=== PATIENT | female | born 1955 | race Asian ===

== ENCOUNTER 2022-09-26 10:40 | Emergency (ER) | payer MEDICARE, OTHER ==
[~2022-09-26] VITALS: Ht 160 cm; Wt 69.1 kg
[2022-09-26 15:06] VITALS: BP 128/83
== END 2022-09-26 15:07 | disposition home or self-care (01) ==
LOC: EMS 10:49
DX: M54.2 Cervicalgia (principal); R51.9 Headache, unspecified; I10 Essential (primary) hypertension; V98.8XXA Other specified transport accidents, initial encounter; Y93.89 Activity, other specified; Y92.89 Other specified places as the place of occurrence of the external cause; Y99.8 Other external cause status
CPT/HCPCS: 70450; 72125; 99284

== ENCOUNTER 2025-06-19 16:02 | Emergency (ER) | payer MEDICARE, MEDICAID ==
[~2025-06-19] VITALS: Ht 160 cm; Wt 73.6 kg
[2025-06-19 16:09] VITALS: BP 129/75; PULSE 88; RESP 18; TEMP 98.6; O2SAT 96
[2025-06-19] MEDS ORDERED: MULT-14 PO (16:09)
[2025-06-19] MEDS ORDERED: AMLO-257 PO (16:09)
[2025-06-19] MEDS ORDERED: LOSA-382 PO (16:09)
[2025-06-19] MEDS ORDERED: HYDR10TA31 PO (16:09)
[2025-06-19] MEDS ORDERED: ASPI-1450 PO (16:09)
[2025-06-19] MEDS ORDERED: CYAN-119 PO (16:09)
[2025-06-19] MEDS ORDERED: MAGN100T PO (16:09)
[2025-06-19] MEDS: PROPARACAINE HCL 0.5% 15 ML OPHTHALMIC SOLUTION OU ONE (17:00)
== END 2025-06-19 18:24 | disposition home or self-care (01) ==
LOC: EMS 16:07
DX: H40.051 Ocular hypertension, right eye (principal); H53.8 Other visual disturbances; I10 Essential (primary) hypertension; Z79.82 Long term (current) use of aspirin; Z79.899 Other long term (current) drug therapy
CPT/HCPCS: 99282; J9035; Z7502